=== PATIENT | female | born 1975 | race Caucasian/White ===

== ENCOUNTER 2019-10-31 04:20 | Emergency (ER) | payer OTHER, SELFPAY ==
--- NOTE | 2019-10-31 04:22 | DI.RAD.S_ITS ---
PROCEDURE: XR KNEE LT 3V INDICATIONS: eval for fracture TECHNIQUE: 3 views of the knee were acquired. COMPARISON: None. FINDINGS: Bones: There is a tiny ossification medial to the medial femoral condyle, of uncertain chronicity. It may be a tiny avulsion. No other fractures or dislocations. Soft tissues: Moderate to large joint effusion. No suspicious soft tissue calcifications. IMPRESSION: Question avulsion injury. Moderately large knee joint effusion. Comment: MRI may potentially be of benefit. Dictated by: Oj Banda M.D. on 10/31/2019 at 8:38 Approved by: Oj Banda M.D. on 10/31/2019 at 8:41
[2019-10-31 04:30] VITALS: BP 129/72; PULSE 91; RESP 15; TEMP 37; O2SAT 99; BMI 35.4
--- NOTE | 2019-10-31 05:25 | ED.LOWEXIN ---
HPI - Extremity Injury (Lower) General Chief Complaint: Extremity Injury, Lower Stated Complaint: left knee went pop while bowling, cant walk Time Seen by Provider: 10/31/19 04:21 Source: patient Mode of arrival: Family Vehicle Limitations: no limitations History of Present Illness HPI Narrative: Otherwise healthy 44-year-old female here for evaluation of left knee injury. Patient states that she was bowling last evening. She states she was walking backwards when she felt/heard several pops in her left knee. Had pain in afterwards. Was able to walk but it was extremely difficult for her. She went home. Woke up this evening to go to the bathroom and had even more problems walking. No prior injury to her left knee. Put some lidocaine patches on her knee without much improvement. Related Data Previous Rx's Medication Instructions Recorded tramadol [Ultram] 50 mg PO Q6H PRN #7 tab 10/31/19 Review of Systems Constitutional Constitutional: Denies fever(s) Cardiovascular Cardiovascular: Denies chest pain and Denies dyspnea Respiratory Respiratory: Denies dyspnea Musculoskeletal Musculoskeletal: Denies tingling Comments: Left knee pain Integumentary/Breasts Skin/Breast: Denies lesions and Denies rash Neurologic Neurologic: Denies behavioral changes, Denies tingling and Denies paresthesias Psychiatric Psychiatric: Denies behavioral changes Hematologic/Lymphatic Hematologic/Lymphatic: Denies easy bleeding and Denies easy bruising Patient History Medical History Healthy adult (Acute) Social History Smoking Status: Current every day smoker Smoking Status: Current every day smoker alcohol intake frequency: a few times a week Alcohol type: beer and hard liquor Substance Use Type: marijuana Exam Initial Vital Signs Initial Vital Signs: Vital Signs Temperature 98.6 F 10/31/19 04:30 Pulse Rate 91 H 10/31/19 04:30 Respiratory Rate 15 10/31/19 04:30 Blood Pressure 129/72 10/31/19 04:30 Pulse Oximetry 99 10/31/19 04:30 Const General: cooperative, comfortable and well developed Limitations: mental status not altered Cardio Pulses: dorsalis pedis present on the left Skin Lesions: no lesions Rashes: no rashes Neuro Sensory Exam: no sensory deficits noted Extrem Other: Left foot left ankle left lower leg unremarkable. Left thigh and left hip unremarkable. Patient is tenderness to palpation on the medial aspect of her left knee. No hamstring tenderness. Patient is able to do straight leg raise. Unable to perform testing of the ACL PCL MCL and LCL secondary patient's guarding and pain. Procedures Orthopedic Splinting/Casting Injury #1: Side: left Lower Extremity Injury Location: knee Lower Extremity Immobilizer: Sai wrap Post splinting neuro exam: intact Post splinting vascular exam: intact Placed by: Nursing Course Orders Ordered: ED Orders 10/31/19 04:22 XR knee LT 3V Stat Discontinued Medications Tramadol HCl (Ultram) 50 mg PO NOW ONE Stop: 10/31/19 05:26 Vital Signs Vital signs: Vital Signs - 8 hr 10/31/19 04:30 Temperature 98.6 F Pulse Rate 91 H Respiratory Rate 15 Blood Pressure 129/72 Pulse Oximetry 99 MDM - Extremity Injury (Lower) Imaging Data Extremity x-ray #1: Radiologist's Impression: No fractures or dislocations MDM Narrative Medical decision making narrative: Somewhat difficult to obtain and exam on the patient given the level pain that she is in. There are no fractures. I do suspect this is either an MCL sprain or a medial meniscus injury. I did explain this the patient. She was given crutches and Sai bandage for comfort. We did discuss that she should follow up with her primary doctor for further evaluation. Discharge Plan Departure Patient Disposition: Home Clinical Impression: Left knee pain Qualifiers: Chronicity: acute Qualified Code(s): M25.562 - Pain in left knee Instructions: How to Use an Elastic Bandage-Knee Sprain, DI for Knee Sprain, How To Perform RICE (Rest, Ice, Compress, Elevate) Activity Restrictions/Additional Instructions: You can walk as tolerated. Use the crutches any Sai bandage as needed. Contact your primary provider for follow-up especially if your symptoms are not improving like we discussed. Prescriptions: New tramadol [Ultram] 50 mg tablet 50 mg PO Q6H PRN (Reason: pain) Qty: 7 RF: 0
[2019-10-31] MEDS: TRAMADOL 50 MG TABLET PO (05:43)
[2019-10-31 05:47] VITALS: BP 129/72; PULSE 78; RESP 15; O2SAT 98
== END 2019-10-31 06:08 | disposition home or self-care (01) ==
PROVIDERS: Emergency Provider Emergency Medicine
DX: M25.562 Pain in left knee (principal)
CPT/HCPCS: 73562; 99283; 99284

== ENCOUNTER → 2019-11-28 08:07 | Outpatient (CLI) | payer OTHER, SELFPAY ==
--- NOTE | 2019-11-28 | DI.MRI.S_ITS ---
PROCEDURE: MR KNEE LT WO CON INDICATIONS: Sprain of medial collateral ligament of left knee, TECHNIQUE: Noncontrast sagittal PD fast spin echo and T2 fast spin echo with fat saturation, sagittal 3-D FLASH with fat saturation; coronal T1 spin echo and PD fast spin echo with fat saturation, and axial PD fast spin echo with fat saturation through the knee. COMPARISON: [facility], CR, XR KNEE LT 3V, 10/31/2019, 5:05. FINDINGS: Image quality: Excellent. Menisci: The medial meniscus is intact. There is detachment of the anterior and posterior horns of the lateral meniscus. There is linear horizontally oriented high T2 signal intensity traversing the posterior horn lateral meniscus, demonstrating superior articular surface extension, suggestive of meniscal tearing. Cruciate ligaments: The anterior and posterior cruciate ligaments appear intact. Medial structures: The medial collateral ligament appears intact, but is somewhat indistinct. Visualized portions of the pes anserinus tendons appear normal. No abnormal bursal fluid. Lateral structures: The lateral collateral ligament, long and short heads of the biceps femoris tendon appear intact. The popliteus tendon appears normal. Iliotibial band appears normal. Anterior structures: The quadriceps and patellar tendons appear intact. Patellar alignment is normal. No femoral trochlear dysplasia or ventral trochlear prominence. No edema in the infrapatellar fat pad. Bones and cartilage: There is a mildly displaced fracture involving the medial aspect of the medial patellar facet, with moderate underlying ill-defined T2 signal elevation. There is severe ill-defined T2 signal elevation within the anterior and posterior weightbearing aspects of the lateral femoral condyle, as well as the lateral nonweightbearing aspect of the lateral femoral condyle. There is linear subchondral low T2 signal intensity traversing the mid and posterior weightbearing aspect of the lateral femoral condyle, spanning roughly 10 mm anteroposterior by 10 mm transverse. There is overlying articular surface irregularity. There is mild tricompartmental periarticular osteophyte formation. There is a focal full-thickness articular cartilage defect overlying the posterior weightbearing and nonweightbearing aspect of the lateral femoral condyle measuring 10 mm. There is a focal, 10 mm diameter articular cartilage defect overlying the medial patellar facet at the location of the fracture. There is severe articular cartilage loss overlying the medial patellar apex. Joint space: There is a moderate knee joint effusion and a trace Aguilera's cyst. Within the posterior central aspect of the knee joint, there is an intra-articular loose body measuring 14 mm which demonstrates signal intensity similar to articular cartilage. A 4 mm intra-articular loose body within the lateral suprapatellar recess is present, with signal intensity similar short of the cartilage. A 10 mm intra-articular loose body within the intercondylar notch is present, which demonstrates signal intensity similar to articular cartilage. There is a small Aguilera's cyst. Normal appearing synovial plicae are incidentally noted. IMPRESSION: 1. Mildly displaced medial patellar fracture with underlying contusion, as well as an overlying articular cartilage defect. There is associated contusion within the lateral nonweightbearing aspect of the lateral femoral condyle, which may represent kissing contusion secondary to recent lateral patellar dislocation. 2. There is a nondisplaced subchondral fracture involving the posterior weightbearing aspect of the lateral femoral condyle, with a full-thickness overlying articular cartilage defect. There is overlying articular surface irregularity. 3. Findings suggestive of a lateral meniscal tear. 4. Knee joint effusion, with multiple intra-articular loose bodies which appear to represent chondral fragments. 5. Low-grade MCL strain. Dictated by: Albaro Deng M.D. on 11/28/2019 at 10:15 Approved by: Albaro Deng M.D. on 11/28/2019 at 10:37
== END ==
PROVIDERS: PCP Family Medicine; Referring Provider Orthopaedic Surgery; Visit Provider Orthopaedic Surgery
DX: S83.412A Sprain of medial collateral ligament of left knee, initial encounter (principal); S82.092A Other fracture of left patella, initial encounter for closed fracture; S72.425A Nondisplaced fracture of lateral condyle of left femur, initial encounter for closed fracture; X58.XXXA Exposure to other specified factors, initial encounter
CPT/HCPCS: 73721

== ENCOUNTER 2022-11-06 19:53 | Emergency (ER) | payer OTHER, SELFPAY ==
--- NOTE | 2022-11-06 19:58 | DI.RAD.S_ITS ---
PROCEDURE: XR KNEE LT 1TO2V INDICATIONS: Fall TECHNIQUE: Two views of the knee were acquired. COMPARISON: [facility], , XR KNEE LT 3V, 10/31/2019, 5:05. FINDINGS: Bones: No visible fractures or dislocations. Lateral compartment joint space loss. No suspicious bony lesions. Soft tissues: No joint effusion. No suspicious soft tissue calcifications. IMPRESSION: Grossly intact left knee. Dictated by: Eileen Roberson M.D. on 11/06/2022 at 21:07 Approved by: Eileen Roberson M.D. on 11/06/2022 at 21:09
--- NOTE | 2022-11-06 19:58 | DI.RAD.S_ITS ---
PROCEDURE: XR ANKLE LT MIN 3V INDICATIONS: Fall TECHNIQUE: 3 views of the ankle were acquired. COMPARISON: None. FINDINGS: Bones: Mildly comminuted, mildly displaced spiral fracture of the distal fibula at and above the level of the syndesmosis. There is predominantly posterior displacement by one full shaft width. There is possibly slight medial mortise widening. Posterior malleolar fracture is not entirely excluded. Soft tissues: No tibiotalar joint effusion. Achilles tendon is not well seen. IMPRESSION: 1. Mild to moderately posteriorly displaced spiral distal fibular fracture with possible mild medial mortise widening. 2. Questionable nondisplaced posterior malleolar fracture. Dictated by: Eileen Roberson M.D. on 11/06/2022 at 21:03 Approved by: Eileen Roberson M.D. on 11/06/2022 at 21:07
[2022-11-06 20:00] VITALS: BP 171/74; PULSE 85; RESP 18; TEMP 36.6; O2SAT 100; BMI 37.2
[2022-11-06 20:05] VITALS: PULSE 85
--- NOTE | 2022-11-06 20:45 | ED_ITS ---
HPI - Extremity Injury (Lower) General Chief Complaint: Extremity Injury, Lower Stated Complaint: fell/lt. ankle/knee pain Time Seen by Provider: 11/06/22 20:09 Source: patient Mode of arrival: Wheelchair Limitations: no limitations History of Present Illness HPI Narrative: Patient is a 47-year-old female who is here for evaluation of a left ankle injury. She states that she slipped on the snow that was on the ground in her driveway and twisted her left ankle. She also states she has discomfort to the inside of her left knee. Has had quite a bit of pain with walking since the event. No prior injuries. No interventions prior to arrival. No other injuries from the event. Related Data Previous Rx's Medication Instructions Recorded tramadol 50 mg tablet (Ultram) 50 mg PO Q6H PRN pain #7 tabs 10/31/19 hydrocodone 5 mg-acetaminophen 325 1 tab PO Q4-6H PRN pain #20 tabs 11/06/22 mg tablet Allergies Allergy/AdvReac Type Severity Reaction Status Date / Time No Known Drug Allergies Allergy Verified 10/31/19 05:39 Review of Systems Constitutional Constitutional: Reports system reviewed and no additional complaints, except as documented Musculoskeletal Musculoskeletal: Reports system reviewed and no additional complaints, except as documented Integumentary/Breasts Skin/Breast: Reports system reviewed and no additional complaints, except as documented Neurologic Neurologic: Reports system reviewed and no additional complaints, except as documented Patient History Medical History Healthy adult Social History Smoking Status: Current every day smoker Smoking Status: Current every day smoker alcohol intake frequency: a few times a week Alcohol type: beer and hard liquor Substance Use Type: marijuana Exam Initial Vital Signs Initial Vital Signs: Vital Signs Temperature 98 F 11/06/22 20:00 Pulse Rate 85 11/06/22 20:00 Respiratory Rate 18 11/06/22 20:00 Blood Pressure 171/74 H 11/06/22 20:00 Pulse Oximetry 100 11/06/22 20:00 Oxygen Delivery Method 11/06/22 20:00 Const General: cooperative and No ill appearing Cardio Pulses: dorsalis pedis present on the left Skin General: no rashes or lesions noted Extrem Other: Left hip is unremarkable. Patient does have discomfort to the inside of the right knee but she states this is very minor. She does have discomfort along the distal aspect of the fibula on the left. Her left foot is unremarkable. Procedures Orthopedic Splinting/Casting Injury #1: Side: left Lower Extremity Injury Location: ankle Lower Extremity Immobilizer: posterior splint and stirrup splint Other Orthopedic Equipment: crutches Post splinting neuro exam: intact Post splinting vascular exam: intact Placed by: Provider Course Orders Ordered: ED Orders 11/06/22 19:58 XR ankle LT min 3V Stat XR knee LT 1to2V Stat Discontinued Medications Hydrocodone Bitart/Acetaminophen (Hydrocodone/Acet 5/325 Tablet) 1 tab PO NOW ONE Stop: 11/06/22 20:46 Last Admin: 11/06/22 20:58 Dose: 1 tab Documented By: ZUNILDA Hydrocodone Bitart/Acetaminophen (Hydrocodone/Acet 5/325 Prepack) 1 bottle MISC SEEINSTR ONE Stop: 11/06/22 20:46 Last Admin: 11/06/22 20:58 Dose: 1 bottle Documented By: ZUNILDA Vital Signs Vital signs: Vital Signs - 8 hr 11/06/22 20:00 11/06/22 20:05 11/06/22 21:14 Temperature 98 F 97.6 F Pulse Rate 85 85 Pulse Rate [Bilateral Dorsalis Pedis] 85 Respiratory Rate 18 18 Blood Pressure 171/74 H 147/77 H Pulse Oximetry 100 100 Oxygen Delivery Method Room Air Room Air MDM - Extremity Injury (Lower) Imaging Data Extremity x-ray #1: Radiologist's Impression: Launch?[place] [address] XRay Report Signed Patient: Guillermina Cablelo MR#: [id number] : 1975 Acct:[id number] Age/Sex: 47 / F Date of Service: 11/06/22 Loc: ED Accession Number: [id number] ?? Procedure: XR ankle LT min 3V Ordering Provider: Haider Lozano D.O. PROCEDURE:? XR ANKLE LT MIN 3V ? INDICATIONS:? Fall ? TECHNIQUE:? 3 views of the ankle were acquired.? ? COMPARISON:? None. ? FINDINGS:? ? Bones:? Mildly comminuted, mildly displaced spiral fracture of the distal fibula at and above the level of the syndesmosis.? There is predominantly posterior displacement by one full shaft width.? There is possibly slight medial mortise widening.? Posterior malleolar fracture is not entirely excluded. ? Soft tissues:? No tibiotalar joint effusion.? Achilles tendon is not well seen. ? ? IMPRESSION:? ? 1. Mild to moderately posteriorly displaced spiral distal fibular fracture with possible mild medial mortise widening. ? 2. Questionable nondisplaced posterior malleolar fracture.? Dictated by: Eileen Roberson M.D. on 11/06/2022 at 21:03 ? ? Approved by: Eileen Roberson M.D. on 11/06/2022 at 21:07? Extremity x-ray #2: Radiologist's Impression: [address] [address] XRay Report Signed Patient: Guillermina Cabello MR#: [id number] : 1975 Acct:[id number] Age/Sex: 47 / F Date of Service: 11/06/22 Loc: ED Accession Number: [id number] ?? Procedure: XR knee LT 1to2V Ordering Provider: Haider Lozano D.O. PROCEDURE:? XR KNEE LT 1TO2V ? INDICATIONS:? Fall ? TECHNIQUE:? Two views of the knee were acquired.? ? [facility]. ? FINDINGS:? ? Bones:? No visible fractures or dislocations.? Lateral compartment joint space loss.? No suspicious bony lesions.? ? Soft tissues:? No joint effusion.? No suspicious soft tissue calcifications.? ? ? IMPRESSION:? Grossly intact left knee. ? ? Dictated by: Eileen Roberson M.D. on 11/06/2022 at 21:07 ? ? Approved by: Eileen Roberson M.D. on 11/06/2022 at 21:09? MDM Narrative Medical decision making narrative: Patient has an obvious fibula fracture. There is not an obvious tibia fracture on my initial read of the x-rays however radiology does report some concern about a posterior malleolar fracture. I also have concern about a syndesmotic injury given the location of the fibula fracture. Because of this we will place her in a splint. She was given crutches. Pain medication. Instructions for follow-up with orthopedics. The x-ray of her left knee is unremarkable. Low suspicion for ligamentous injury based on her exam and presentation today. She will contact the Orthopedic Department for follow-up. She was given return precautions. She expressed understanding and agreement. Discharge Plan Departure Patient Disposition: Home Clinical Impression: Ankle fracture Instructions: How to Use Crutches, DI for Ankle Fracture, How to Take Care of Your Splint Prescriptions: New hydrocodone-acetaminophen 5-325 mg tablet 1 tab PO Q4-6H PRN (Reason: pain) Qty: 20 0RF No Action tramadol [Ultram] 50 mg tablet 50 mg PO Q6H PRN (Reason: pain) Qty: 7 0RF Referrals: Frieda Bacon MD [Physician] - Ez Rosario DO [Primary Care Provider] - Stand Alone Forms: Patient Portal/API
[2022-11-06] MEDS: HYDROCODONE/ACET 5/325 TABLET 1 TAB PO (20:58)
[2022-11-06] MEDS: HYDROCODONE/ACET 5/325 PREPACK 1 BOTTLE MISC (20:58)
[2022-11-06 21:14] VITALS: BP 147/77; PULSE 85; RESP 18; TEMP 36.4; O2SAT 100
== END 2022-11-06 21:22 | disposition home or self-care (01) ==
PROVIDERS: Emergency Provider Emergency Medicine; PCP Family Medicine
DX: S82.892A Other fracture of left lower leg, initial encounter for closed fracture (principal); W00.0XXA Fall on same level due to ice and snow, initial encounter
CPT/HCPCS: 29515; 73560; 73610; 99283

== ENCOUNTER 2022-11-10 10:36 | Day surgery (SDC) | payer OTHER, SELFPAY ==
[2022-11-09 08:48] VITALS: BMI 37.5
[2022-11-10] VITALS (11 sets, daily range): BP systolic 115–152; BP diastolic 70–92; PULSE 81–103; RESP 12–18; TEMP 36.3–36.9; O2SAT 97–100; BMI 37.5
--- NOTE | 2022-11-10 | DI.RAD.S_ITS ---
PROCEDURE: XR ANKLE LT 2V INDICATIONS: ORIF TECHNIQUE: A total of 4 views of the ankle were acquired. COMPARISON: [facility], CR, XR ANKLE LT MIN 3V, 11/06/2022, 20:00. FINDINGS: Bones: No previously on identified fractures or dislocations. Anatomic alignment across the distal fibular fracture previously identified is excellent after ORIF. Ankle mortise is normally aligned. No suspicious bony lesions. Soft tissues: No tibiotalar joint effusion. Achilles tendon appears normal. IMPRESSION: Excellent anatomic alignment established for healing across the distal fibular diaphyseal fracture, after ORIF. Dictated by: Champ Gore M.D. on 11/10/2022 at 15:52 Approved by: Champ Gore M.D. on 11/10/2022 at 15:54
[2022-11-10] MEDS: LACTATED RINGERS 1,000 ML 100 ML IV ×2 (10:46→14:18)
[2022-11-10] MEDS: CEFAZOLIN 2 GM/100 ML PREMIX 100 ML IV (12:35)
--- NOTE | 2022-11-10 12:36 | PM.PREOP ---
Pre-operative Note Interval Note History & Physical reviewed/Exam performed by Physician: Yes Changes to H&P: No
--- NOTE | 2022-11-10 13:03 | SUR.OPER ---
Supine on padded OR bed, head on pillow, arms secured on padded arm boards at <90 degrees abduction with additional blanket padding underneath left arm, legs uncrossed, safety belt at abdomen, tape over blanket over lower right leg. Hiram bump under left leg and flank
[2022-11-10] MEDS: BUPIVACAINE 0.5% W/ EPI (PF) 30 ML VIAL INJ (13:11)
[2022-11-10] MEDS: HYDROMORPHONE 2 MG INJ IV (14:37)
[2022-11-10] MEDS: OXYCODONE/ACETAMINOPHEN 5/325 TABLET 1 TAB PO (14:51)
--- NOTE | 2022-11-10 14:58 | P.OP_ITS ---
Operative Date/Time/Diagnoses Date of procedure: 11/10/22 Time of procedure: 14:58 Pre-op diagnosis: Displaced fracture lateral malleolus BMI 37 Post-op diagnosis: same Procedure & Clinicians Procedure: Open reduction internal fixation left ankle lateral malleolus CPT code 28564 Same procedure as scheduled: Yes Indications: Patient is a 47-year-old female that fell down in her driveway on 11/06/2022 when it was healing and sleeping. She felt a snap and a pop and was unable to ambulate. She was taken to [facility] and found to have a displaced lateral malleolus fracture at the level and above the syndesmosis. This was an unstable fracture. There was a question of a posterior malleolus fracture she was placed into a splint. She was indicated for operative fixation of her displaced unstable pattern ankle fracture. The risks and benefits of the procedure have been discussed with the patient and given the opportunity to ask questions. The risks of surgery include but are not limited to infection, malunion, nonunion, persistence of pain, damage to nerves and blood vessels, posttraumatic arthritis, DVT, PE, cardiopulmonary complications and . The patient expressed a thorough understanding of the risks and benefits of surgery and has elected to proceed. Consent was signed. Surgeon: Frieda Bacon Click Yes if Unassisted: Yes Anesthesia Type: General and Local Operative Notes Findings: Displaced lateral malleolus fracture with long spiral component into the level of the syndesmosis this was then and did fragment into a comminuted fracture. This was reduced with K-wires and held in place and stabilized with a posterior lateral placed 8 hole 1/3 tubular plate from the Arthrex set. Once the fibula was fixed the syndesmosis was stressed and this was stable. Additional screw fixation of the lateral images did not reveal any obvious or displaced posterior malleolus fracture. Closure Type: primary Specimen(s): none sent Prosthetic devices, grafts, tissues, transplants, or devices: Arthrex 8 hole 1/3 tubular plate locking capable. Two locking 3.5 screws placed distally, additional 3.5 cortical lag screws placed through the plate, and 3.5 cortical screws proximally Estimated Blood Loss (mL): 15 Blood products transfused: none Tourniquet time (min): 49 Procedure in detail: Patient was seen in the preoperative area the site of surgery marked informed consent confirmed she was brought back to the operating room by the anesthesia team positioned supine on operative table. General anesthetic was administered. All bony prominences well padded. A well-padded thigh tourniquet was placed. The left lower extremities prepped and draped in the standard sterile fashion a formal time-out procedure was performed confirming the patient's side and site of surgery administration of appropriate preoperative antibiotics. All were in agreement. Attention was turned to the left lower extremity Esmarch was used for exsanguination and the tourniquet raised the thigh to 250 mmHg. Attention was turned to the lateral ankle. C-arm was brought in to idalia the level of the fracture. Then a long incision along the posterior border of the fibula was taken down through the skin subcutaneous tissue. Mason tendons were identified. The peroneal tendon sheath was opened and the peroneal tendons were retracted posteriorly. The posterolateral border of the fibula was exposed and the fracture was identified and debrided. The fracture was cleaned of hematoma and irrigated. Next lobster claw clamps were used to reduce and hold the frac ture. Then 2 K-wires were used to hold the long comminuted fracture fragments. Once this was complete a 8 hole 1/3 tubular plate from the Arthrex set was slid along the posterior border of the fibula and fixed distally and proximally with the minimal of 2 screws above and below the fracture. Once this was completed this was provisionally secured with BB tacks. Then 2, 3.[address] d through the plate in posterior to anterior direction securing the fracture next locking screws were placed distally to avoid prominence and held fixation in the metaphyseal bone. And nonlocking screws were placed bicortically proximal to the fracture. The fracture was anatomically reduced on AP mortise and lateral imaging. Once this was complete the ankle was stressed in external rotation. The syndesmosis did not open and was stable. Additional screw was taken on lateral x-rays both prior and after fixation and no posterior malleolus fracture was identified. At this time tourniquet was released hemostasis was achieved. The wound was irrigated. Deep tissues were closed with 2-0 Vicryl suture. Subcutaneous with 4-0 Monocryl and skin with 3-0 nylon suture. 30 cc of 0.25% Marcaine with epinephrine were used for injection for local anesthetic. Sterile dressing with Xeroform gauze and Webril and a posterior and U splint were applied. The patient was woken from anesthesia taken to recovery room in good condition there no immediate complications from this procedure. All counts were correct. Complications: none Post-operative Condition: stable Disposition: PACU Plan for aftercare: Nonweightbearing for 2 weeks in the splint elevation to reduce swelling. Aspirin will be taken postoperatively for DVT prophylaxis. Patient will follow up in clinic in 2 weeks for three views nonweightbearing left ankle and splint removal and suture removal at that time she will go into a boot and start early range of motion and likely early weight-bearing 25% each week at that time
== END 2022-11-10 15:35 | disposition home or self-care (01) ==
PROVIDERS: PCP Physician Assistant; Referring Provider Orthopaedic Surgery Foot and Ankle Surgery; Visit Provider Orthopaedic Surgery Foot and Ankle Surgery
PROC: (CPT 27792; principal; 2022-11-10 12:00)
DX: S82.62XA Displaced fracture of lateral malleolus of left fibula, initial encounter for closed fracture (principal); W18.30XA Fall on same level, unspecified, initial encounter; Y92.093 Driveway of other non-institutional residence as the place of occurrence of the external cause
CPT/HCPCS: 27792; 73600; 76000; C1713; J0690; J1100; J1170; J2405; J2704; J3010